=== PATIENT | female | born 1960 | race Caucasian/White ===

== ENCOUNTER 2018-05-03 21:02 | Emergency (ER) | payer MEDICAID ==
[~2018-05-03] VITALS: Ht 170.2 cm; Wt 97.6 kg
[2018-05-03 21:22] VITALS: BP 165/96
[2018-05-03] MEDS ORDERED: Cipro HC otic suspension 10ML bottle RIGHT EAR SCH (21:59)
[2018-05-03] MEDS ORDERED: DYN500C PO (21:59)
[2018-05-03] MEDS ORDERED: NAPR-56 PO (22:00)
[2018-05-03] MEDS ORDERED: naproxen 500mg tablet PO ONE (22:00)
[2018-05-03] MEDS ORDERED: CIPR10DR LEFT EAR (22:00)
[2018-05-04] MEDS ORDERED: Cipro HC otic suspension 10ML bottle RIGHT EAR SCH (08:00)
== END 2018-05-03 22:19 | disposition home or self-care (01) ==
LOC: ER 21:02
DX: H60.92 Unspecified otitis externa, left ear (principal); I10 Essential (primary) hypertension; G89.29 Other chronic pain; F17.200 Nicotine dependence, unspecified, uncomplicated; Z90.710 Acquired absence of both cervix and uterus; Z98.890 Other specified postprocedural states; Z88.8 Allergy status to other drugs, medicaments and biological substances; Z79.2 Long term (current) use of antibiotics; Z79.899 Other long term (current) drug therapy
CPT/HCPCS: 99283

== ENCOUNTER 2023-10-30 10:58 | Outpatient (CLI) | payer MEDICARE, MEDICAID | END 2023-10-30 23:59 | disposition home or self-care (01) | LOC: RAD 10:58 | PROVIDERS: ATTEND Physician Assistant | DX: M16.0 Bilateral primary osteoarthritis of hip (principal); M25.851 Other specified joint disorders, right hip; M25.852 Other specified joint disorders, left hip; M25.552 Pain in left hip; M46.1 Sacroiliitis, not elsewhere classified; M47.816 Spondylosis without myelopathy or radiculopathy, lumbar region; M43.26 Fusion of spine, lumbar region; M54.59 Other low back pain; M85.68 Other cyst of bone, other site | CPT/HCPCS: 73700 ==